=== PATIENT | female | born 1960 | race Caucasian/White ===

== ENCOUNTER 2019-01-04 11:23 | Outpatient (CLI) | payer OTHER ==
--- NOTE | 2019-01-04 11:39 | RAD ---
Exam:3 views left shoulder HISTORY: Pain. Patient fell 8 weeks ago. COMPARISON: None FINDINGS: Glenohumeral joint space is preserved. The acromioclavicular and coracoclavicular distances are maintained. No fractures or malalignment. Visualized left ribs are IMPRESSION: Unremarkable
== END 2019-01-04 11:24 | disposition home or self-care (01) ==
LOC: BICRAD 11:23
PROVIDERS: ATTEND Family Medicine
DX: M25.512 Pain in left shoulder (principal)